=== PATIENT | female | born 1950 | race Caucasian/White ===

== ENCOUNTER 2016-08-19 11:33 | Inpatient (IN) | payer MEDICARE, MEDICAID ==
[~2016-08-19] VITALS: Ht 147.3 cm; Wt 88.1 kg
[~2016-08-19 11:33] MED LIST: ASPI81CH43; BIS10RS PR; CARV3.1240 PO; DIPH25CA39 PO; ENO60SY SC; LEVO50TA7 PO; LISI2.5T47 PO; MOMLQ PO; NITR0.4S31 SL; NOR5T PO; PROVENTIL NEB; TOPI100T29 PO; TRAZ100T2 PO; WARF6TAB20 PO
[2016-08-19 12:21] LABS: Basophils # (auto) 0 uL; Basophils % (auto) 0.4 % (0.0-2.0); Eosinophils # (auto) 0.2 uL; Eosinophils % (auto) 3.3 % (0.0-7.0); Hematocrit 41.2 % (36.0-46.0); Hemoglobin 13.2 g/dL (12.2-16.2); Lymphocytes # (auto) 1.5 uL; Lymphocytes % (auto) 29.1 % (10.0-50.0); Mean Corpuscular Hemoglobin 31.2 pg (28.0-32.0); Mean Corpuscular Hgb Conc. 32.1 g/dL (32.0-36.0); Mean Platelet Volume 7.8 fL (7.4-10.4); Monocytes # (auto) 0.6 uL; Monocytes % (auto) 12.4 % (0.0-12.0); Neutrophils # (auto) 2.8 uL; Neutrophils % (auto) 54.8 % (37.0-80.0); Platelet Count (auto) 202 10^3/uL (140-450); Red Cell Distribution Width 16.2 % (11.6-16.0)
[2016-08-19] MEDS ORDERED: SODIUM CHLORIDE 0.9% 1,000 ML IV ONE (12:33)
[2016-08-19] MEDS ORDERED: NALBUPHINE HCL 10 MG/1ml INJECTION IV ONE (12:45)
[2016-08-19] MEDS ORDERED: METOCLOPRAMIDE HCL 5MG/ml INJ 2ml VIAL IV ONE (12:45)
[2016-08-19 12:58] LABS: Albumin 3.5 g/dL (3.4-5.0); BUN/Creatinine Ratio 17.4; Bilirubin, Total 0.5 mg/dL (0.2-1.0); Calcium 8.9 mg/dL (8.5-10.1); Potassium 3.8 mmol/L (3.5-5.1); Total Protein 7.1 g/dL (6.4-8.2)
[2016-08-19] MEDS ORDERED: ALBUTEROL SULF 2.5 MG/0.5ML(0.5%) NEB SOLN NEB ONE ×3 (15:15→18:00)
[2016-08-19] MEDS ORDERED: IPRATROPIUM BROM 0.5 MG/2.5ML INH SOL NEB ONE ×3 (15:15→18:00)
[2016-08-19] MEDS ORDERED: DEXAMETHASONE SOD PHOS 4 MG/1ML SDV INJ IV ONE (15:15)
[2016-08-19 15:18] LABS: Urine Bilirubin Negative (Negative); Urine Blood Negative /uL (Negative); Urine Color Yellow (Yellow); Urine Glucose Normal (Normal); Urine Ketone Negative (Negative); Urine Mucus FEW (None Seen); Urine Nitrite Negative (Negative); Urine RBC 1 /hpf (0 - 4); Urine Squamous Epithelial Cell FEW /hpf (<5)
[2016-08-19] MEDS ORDERED: cefTRIAXone 1GM/50ML D5W 50 ML IV ONE (17:15)
[2016-08-19] MEDS ORDERED: FUROSEMIDE 40 MG/4 ML VIAL IV ONE (18:15)
[2016-08-19] MEDS ORDERED: ONDANSETRON HCL 4 MG/2 ML VIAL IV PRN (18:15)
[2016-08-19] MEDS ORDERED: ACETAMINOPHEN 325 MG TAB PO PRN (18:15)
[2016-08-19] MEDS ORDERED: diphenhdrAMINE HCL 25 MG CAP PO PRN (18:15)
[2016-08-19] MEDS ORDERED: POTASSIUM CHL 10 Meq TABLET PO ONE (18:15)
[2016-08-19] MEDS ORDERED: DOCUSATE SOD 100 MG CAP PO PRN (18:15)
[2016-08-19] MEDS ORDERED: HYDROcodone-ACET 5/325MG TAB PO PRN (18:15)
[2016-08-19] MEDS ORDERED: TEMAZEPAM 15 MG CAP PO PRN (18:15)
[2016-08-19] MEDS ORDERED: NITROGLYCERIN 0.4 MG SL TAB SL PRN (18:15)
[2016-08-19] MEDS ORDERED: MILK OF MAGNESIA 30ML SUSP PO PRN (18:15)
[2016-08-19] MEDS ORDERED: MORPHINE SULF INJ 2 MG/ML SYRINGE 1ML IV PRN (18:15)
[2016-08-19] MEDS: MORPHINE SULF INJ 2 MG/ML SYRINGE 1ML IV PRN ×2 (18:41→23:05)
[2016-08-19] MEDS ORDERED: LEVOFLOXACIN 500MG 100 ML IV ONE (19:00)
[2016-08-19] MEDS: methylPREDNISolone SOD SUCC 125 MG/2 ML VL IV SCH (19:08)
[2016-08-19] MEDS ORDERED: AZITHROMYCIN 500MG/D5W 250ML 250 ML IV ONE (20:00)
[2016-08-19 20:15] VITALS: BP 106/66
[2016-08-19 22:00] VITALS: BP_SYST 106; BP_SYST 117; BP_DIAS 54; BP_DIAS 66
[2016-08-19] MEDS: SODIUM CHLOR 0.9% PF (SALINE LOCK) 10ML VIAL IV SCH (22:00)
[2016-08-19] MEDS ORDERED: traZODone HCL 50 MG TAB PO SCH (22:00)
[2016-08-19] MEDS: IPRATROPIUM BROM 0.5 MG/2.5ML INH SOL NEB SCH (22:39)
[2016-08-19] MEDS: ALBUTEROL SULF 2.5 MG/0.5ML(0.5%) NEB SOLN NEB SCH (22:39)
[2016-08-19] MEDS: CARVEDILOL 3.125 MG TAB PO SCH (23:04)
[2016-08-19] MEDS: TOPIRAMATE 100 MG TAB PO SCH (23:05)
[2016-08-20] VITALS (7 sets, daily range): BP systolic 93–123; BP diastolic 54–74
[2016-08-20] MEDS: methylPREDNISolone SOD SUCC 125 MG/2 ML VL IV SCH ×4 (00:40→16:15)
[2016-08-20] MEDS: ALBUTEROL SULF 2.5 MG/0.5ML(0.5%) NEB SOLN NEB SCH ×6 (02:53→22:29)
[2016-08-20] MEDS: IPRATROPIUM BROM 0.5 MG/2.5ML INH SOL NEB SCH ×6 (02:53→22:29)
[2016-08-20] MEDS: MORPHINE SULF INJ 2 MG/ML SYRINGE 1ML IV PRN ×3 (04:28→16:11)
[2016-08-20] MEDS: SODIUM CHLOR 0.9% PF (SALINE LOCK) 10ML VIAL IV SCH ×3 (06:00→22:25)
[2016-08-20] MEDS ORDERED: OXYCODONE W/ ACETAMINOPHEN 5/325MG TABLET PO PRN ×2 (06:00→06:30)
[2016-08-20 06:18] LABS: Basophils # (auto) 0 uL; Basophils % (auto) 0.3 % (0.0-2.0); Eosinophils # (auto) 0 uL; Hematocrit 44.4 % (36.0-46.0); Lymphocytes # (auto) 0.8 uL; Lymphocytes % (auto) 17.2 % (10.0-50.0); Mean Corpuscular Hgb Conc. 31.6 g/dL (32.0-36.0); Mean Corpuscular Volume 98.2 fL (80.0-100.0); Mean Platelet Volume 7.8 fL (7.4-10.4); Monocytes # (auto) 0 uL; Monocytes % (auto) 0.7 % (0.0-12.0); Neutrophils # (auto) 3.8 uL; Neutrophils % (auto) 81.8 % (37.0-80.0); Platelet Count (auto) 197 10^3/uL (140-450); Red Cell Distribution Width 16.2 % (11.6-16.0); White Blood Cell 4.6 10^3/uL (4.4-10.8)
[2016-08-20] MEDS: LEVOTHYROXINE SODIUM 50 MCG TAB PO SCH (06:32)
[2016-08-20 06:36] LABS: INR 1.12 (0.9-1.15); Prothrombin Time 11.5 sec (9.37-12.3)
[2016-08-20 07:05] LABS: Albumin 3.5 g/dL (3.4-5.0); BUN/Creatinine Ratio 16.2; Bilirubin, Total 0.4 mg/dL (0.2-1.0); Calcium 8.6 mg/dL (8.5-10.1); Potassium 4.4 mmol/L (3.5-5.1); Total Protein 7.8 g/dL (6.4-8.2)
[2016-08-20] MEDS: FUROSEMIDE 40 MG/4 ML VIAL IV SCH (09:27)
[2016-08-20] MEDS: MULTIPLE VITAMIN TAB PO SCH (09:27)
[2016-08-20] MEDS: POTASSIUM CHL 20 Meq TABLET PO SCH (09:27)
[2016-08-20] MEDS: TOPIRAMATE 100 MG TAB PO SCH ×2 (09:28→22:24)
[2016-08-20] MEDS: CARVEDILOL 3.125 MG TAB PO SCH ×2 (09:29→16:14)
[2016-08-20] MEDS: ASPirin-EC 81 mg tab PO SCH (09:29)
[2016-08-20] MEDS: LISINOPRIL 5 MG TAB PO SCH (09:29)
[2016-08-20] MEDS ORDERED: WARFARIN SODIUM 5 MG TAB PO SCH (10:00)
[2016-08-20] MEDS ORDERED: POTASSIUM CHL 10 Meq TABLET PO SCH (10:00)
[2016-08-20] MEDS ORDERED: TOPIRAMATE 100 MG TAB PO ONE (10:00)
[2016-08-20] MEDS ORDERED: FUROSEMIDE 20 MG TAB PO ONE (10:00)
[2016-08-20] MEDS ORDERED: AZITHROMYCIN 500MG/D5W 250ML 250 ML IV SCH (11:00)
[2016-08-20] MEDS: LEVOFLOXACIN 500MG 100 ML IV SCH (11:48)
[2016-08-20] MEDS ORDERED: WARFARIN SODIUM 5 MG TAB PO ONE (17:00)
[2016-08-20] MEDS: traZODone HCL 50 MG TAB PO SCH (22:24)
[2016-08-21] MEDS: ALBUTEROL SULF 2.5 MG/0.5ML(0.5%) NEB SOLN NEB SCH ×6 (02:00→22:42)
[2016-08-21] MEDS: IPRATROPIUM BROM 0.5 MG/2.5ML INH SOL NEB SCH ×6 (02:00→22:42)
[2016-08-21] MEDS: methylPREDNISolone SOD SUCC 125 MG/2 ML VL IV SCH ×4 (05:38→17:24)
[2016-08-21 05:56] VITALS: BP 88/59
[2016-08-21 05:56] LABS: Basophils # (auto) 0 uL; Basophils % (auto) 0.5 % (0.0-2.0); Eosinophils # (auto) 0 uL; Eosinophils % (auto) 0.1 % (0.0-7.0); Hematocrit 40.7 % (36.0-46.0); Lymphocytes # (auto) 1.7 uL; Lymphocytes % (auto) 21.3 % (10.0-50.0); Mean Corpuscular Hemoglobin 31.6 pg (28.0-32.0); Mean Corpuscular Hgb Conc. 31.8 g/dL (32.0-36.0); Mean Corpuscular Volume 99.1 fL (80.0-100.0); Mean Platelet Volume 8.1 fL (7.4-10.4); Monocytes # (auto) 0.9 uL; Monocytes % (auto) 11.2 % (0.0-12.0); Neutrophils # (auto) 5.6 uL; Neutrophils % (auto) 66.9 % (37.0-80.0); Platelet Count (auto) 161 10^3/uL (140-450); Red Cell Distribution Width 15.2 % (11.6-16.0); White Blood Cell 8.2 10^3/uL (4.4-10.8)
[2016-08-21 06:13] LABS: INR 1.08 (0.9-1.15); Partial Thromboplastin Time 23.2 sec (22.64-33.71); Prothrombin Time 11.1 sec (9.37-12.3)
[2016-08-21] MEDS: LEVOTHYROXINE SODIUM 50 MCG TAB PO SCH (06:17)
[2016-08-21] MEDS: SODIUM CHLOR 0.9% PF (SALINE LOCK) 10ML VIAL IV SCH ×3 (06:18→22:11)
[2016-08-21 06:52] LABS: Albumin 3.5 g/dL (3.4-5.0); BUN/Creatinine Ratio 30.9; Bilirubin, Total 0.3 mg/dL (0.2-1.0); Calcium 8.6 mg/dL (8.5-10.1); Potassium 4.3 mmol/L (3.5-5.1); Total Protein 7.1 g/dL (6.4-8.2)
[2016-08-21 09:00] VITALS: BP 98/66
[2016-08-21] MEDS: CARVEDILOL 3.125 MG TAB PO SCH ×2 (09:04→22:00)
[2016-08-21] MEDS: LISINOPRIL 5 MG TAB PO SCH (09:05)
[2016-08-21] MEDS: LEVOFLOXACIN 500MG 100 ML IV SCH (09:12)
[2016-08-21] MEDS: FUROSEMIDE 40 MG/4 ML VIAL IV SCH (09:12)
[2016-08-21] MEDS: TOPIRAMATE 100 MG TAB PO SCH ×2 (09:13→22:12)
[2016-08-21] MEDS: POTASSIUM CHL 20 Meq TABLET PO SCH (09:13)
[2016-08-21] MEDS: ASPirin-EC 81 mg tab PO SCH (09:13)
[2016-08-21] MEDS: MULTIPLE VITAMIN TAB PO SCH (09:14)
[2016-08-21] MEDS: MORPHINE SULF INJ 2 MG/ML SYRINGE 1ML IV PRN ×2 (12:22→17:04)
[2016-08-21 12:52] VITALS: BP 100/57
[2016-08-21 17:00] VITALS: BP 105/59
[2016-08-21] MEDS ORDERED: WARFARIN SODIUM 2.5 MG TAB PO ONE (17:00)
[2016-08-21 20:00] VITALS: BP 95/63
[2016-08-21 22:00] VITALS: BP 95/63
[2016-08-21] MEDS: traZODone HCL 50 MG TAB PO SCH (22:11)
[2016-08-22] MEDS: IPRATROPIUM BROM 0.5 MG/2.5ML INH SOL NEB SCH ×6 (03:08→22:20)
[2016-08-22] MEDS: ALBUTEROL SULF 2.5 MG/0.5ML(0.5%) NEB SOLN NEB SCH ×6 (03:09→22:20)
[2016-08-22 04:48] VITALS: BP 104/68
[2016-08-22] MEDS: SODIUM CHLOR 0.9% PF (SALINE LOCK) 10ML VIAL IV SCH ×3 (05:28→22:19)
[2016-08-22] MEDS: methylPREDNISolone SOD SUCC 125 MG/2 ML VL IV SCH ×4 (06:00→17:50)
[2016-08-22] MEDS: LEVOTHYROXINE SODIUM 50 MCG TAB PO SCH (06:04)
[2016-08-22 06:29] LABS: Basophils # (auto) 0.1 uL; Basophils % (auto) 0.8 % (0.0-2.0); Eosinophils # (auto) 0.4 uL; Hematocrit 43.8 % (36.0-46.0); Hemoglobin 13.7 g/dL (12.2-16.2); Lymphocytes # (auto) 1.8 uL; Lymphocytes % (auto) 26.3 % (10.0-50.0); Mean Corpuscular Hemoglobin 31.1 pg (28.0-32.0); Mean Corpuscular Hgb Conc. 31.3 g/dL (32.0-36.0); Mean Corpuscular Volume 99.2 fL (80.0-100.0); Mean Platelet Volume 8.2 fL (7.4-10.4); Monocytes # (auto) 0.9 uL; Monocytes % (auto) 12.3 % (0.0-12.0); Neutrophils # (auto) 3.8 uL; Neutrophils % (auto) 55.6 % (37.0-80.0); Platelet Count (auto) 170 10^3/uL (140-450)
[2016-08-22 06:40] LABS: INR 1.11 (0.9-1.15); Partial Thromboplastin Time 20.3 sec (22.64-33.71); Prothrombin Time 11.4 sec (9.37-12.3)
[2016-08-22 07:13] LABS: Potassium 4.5 mmol/L (3.5-5.1)
[2016-08-22 07:25] LABS: Albumin 3.2 g/dL (3.4-5.0); BUN/Creatinine Ratio 27.6; Calcium 8.5 mg/dL (8.5-10.1)
[2016-08-22 07:27] LABS: Bilirubin, Total 0.3 mg/dL (0.2-1.0); Total Protein 7.1 g/dL (6.4-8.2)
[2016-08-22] MEDS: MORPHINE SULF INJ 2 MG/ML SYRINGE 1ML IV PRN (08:12)
[2016-08-22 08:30] VITALS: BP 112/73
[2016-08-22] MEDS: ASPirin-EC 81 mg tab PO SCH (10:12)
[2016-08-22] MEDS: LEVOFLOXACIN 500MG 100 ML IV SCH (10:12)
[2016-08-22] MEDS: FUROSEMIDE 40 MG/4 ML VIAL IV SCH (10:12)
[2016-08-22] MEDS: POTASSIUM CHL 20 Meq TABLET PO SCH (10:13)
[2016-08-22] MEDS: CARVEDILOL 3.125 MG TAB PO SCH ×2 (10:13→22:18)
[2016-08-22] MEDS: TOPIRAMATE 100 MG TAB PO SCH ×2 (10:14→22:17)
[2016-08-22] MEDS: MULTIPLE VITAMIN TAB PO SCH (10:14)
[2016-08-22] MEDS: LISINOPRIL 5 MG TAB PO SCH (10:14)
[2016-08-22 13:00] VITALS: BP 103/65
[2016-08-22] MEDS ORDERED: WARFARIN SODIUM 2.5 MG TAB PO ONE (17:00)
[2016-08-22 17:25] VITALS: BP 88/48
[2016-08-22] MEDS ORDERED: BOOST PLUS 8 ounce PO SCH (18:00)
[2016-08-22 21:40] VITALS: BP 95/51
[2016-08-22 21:44] VITALS: BP 106/68
[2016-08-22] MEDS: traZODone HCL 50 MG TAB PO SCH (22:17)
[2016-08-23] MEDS: methylPREDNISolone SOD SUCC 125 MG/2 ML VL IV SCH (00:50)
[2016-08-23 02:11] VITALS: BP 90/53
[2016-08-23] MEDS ORDERED: SUCCINYLCHOLINE CHLORIDE 20 MG/ML 10ML VIAL IV ONE ×2 (02:14→02:58)
[2016-08-23] MEDS ORDERED: ETOMIDATE (2MG/ML) 20ML VIAL IV ONE (02:14)
[2016-08-23] MEDS ORDERED: ATRACURIUM BESYLATE (10 MG/ ML) 10 ML VIAL ONE (02:37)
[2016-08-23] MEDS ORDERED: SODIUM BICARBONATE 8.4% INJ 50ML SYRINGE ONE (03:12)
[2016-08-23] MEDS ORDERED: EPINEPHrine HCL 1 MG/10 ML SYRG ONE (03:45)
[2016-08-23] MEDS ORDERED: EPINEPHrine HCL 1 MG/10 ML SYRG IV ONE (07:14)
[2016-08-23] MEDS ORDERED: SODIUM BICARBONATE 8.4% INJ 50ML SYRINGE IV ONE (08:19)
== END 2016-08-23 08:20 | disposition expired | DRG 291 ==
LOC: EDBD 11:33 → ER 11:38 → TELE 11:39 → TELE-WESTW 20:18 → WEST WING 08-21 18:42
PROVIDERS: ADMIT Internal Medicine; ATTEND Internal Medicine
PROC: 0BH17EZ Insertion of Endotracheal Airway into Trachea, Via Natural or Artificial Opening (ICD-10-PCS; principal; 2016-08-23)
PROC: 5A12012 Performance of Cardiac Output, Single, Manual (ICD-10-PCS; 2016-08-23)
DX: I11.0 Hypertensive heart disease with heart failure (principal); R40.2110 Coma scale, eyes open, never, unspecified time; R40.2210 Coma scale, best verbal response, none, unspecified time; R40.2310 Coma scale, best motor response, none, unspecified time; J45.901 Unspecified asthma with (acute) exacerbation; Z68.41 Body mass index [BMI] 40.0-44.9, adult; N39.0 Urinary tract infection, site not specified; E44.0 Moderate protein-calorie malnutrition; I50.43 Acute on chronic combined systolic (congestive) and diastolic (congestive) heart failure; R09.02 Hypoxemia; E66.9 Obesity, unspecified; E78.5 Hyperlipidemia, unspecified; F17.210 Nicotine dependence, cigarettes, uncomplicated; I25.10 Atherosclerotic heart disease of native coronary artery without angina pectoris; E78.00 Pure hypercholesterolemia, unspecified; J44.9 Chronic obstructive pulmonary disease, unspecified; I46.9 Cardiac arrest, cause unspecified; I25.2 Old myocardial infarction; Z83.3 Family history of diabetes mellitus; Z90.49 Acquired absence of other specified parts of digestive tract; Z90.710 Acquired absence of both cervix and uterus; Z98.890 Other specified postprocedural states; Z98.61 Coronary angioplasty status
CPT/HCPCS: 36415; 36600; 71010; 80053; 81001; 82805; 83735; 84443; 84484; 85025; 85610; 85730; 87040; 87081; 93005; 93306; 94640; 94660; 96361; 96365; 96367; 96375; J0330; J0696; J1100; J1956; J2405